=== PATIENT | male | born 2000 | race Caucasian/White ===

== ENCOUNTER 2022-02-26 12:20 | Emergency (ER) | payer SELFPAY ==
[~2022-02-26] VITALS: Ht 177.8 cm; Wt 63.5 kg
[2022-02-26] MEDS ORDERED: MORPHINE SULFATE 4 MG/1 ML DISP.SYRIN ONE (12:43)
[2022-02-26] MEDS ORDERED: ONDANSETRON 4 MG/2 ML VIAL ONE (12:43)
[2022-02-26] MEDS ORDERED: TDAP DIPH,PERTUSS,TET VAC/PF 0.5 ML DISP.SYRIN IM ONE ×2 (12:44→12:45)
[2022-02-26] MEDS ORDERED: ONDANSETRON 4 MG/2 ML VIAL IV ONE (12:45)
[2022-02-26] MEDS ORDERED: MORPHINE SULFATE 4 MG/1 ML DISP.SYRIN IV ONE (12:45)
--- NOTE | 2022-02-26 12:46 | NUR ---
DR COKER AT BEDSIDE FOR EVALUATION. PT REMAINS AWAKE, ALERT, VERBALLY RESPONSIVE.
[2022-02-26] MEDS ORDERED: LIDOCAINE HCL 2% 20 ML VIAL TP ONE (13:15)
[2022-02-26] MEDS ORDERED: LET TOPICAL SOLUTION 8 ML UDC TP ONE (13:15)
[2022-02-26] MEDS ORDERED: SODIUM BICARBONATE 4.2 % (NEUT) 5 ML VIAL TP ONE (13:15)
[2022-02-26] MEDS ORDERED: LET TOPICAL SOLUTION 8 ML UDC ONE (13:21)
[2022-02-26] MEDS ORDERED: SODIUM BICARBONATE 4.2 % (NEUT) 5 ML VIAL ONE (13:21)
[2022-02-26] MEDS ORDERED: LIDOCAINE HCL 2% 20 ML VIAL ONE (13:21)
[2022-02-26] MEDS ORDERED: NEOMY/BACITRA/POLYMYXIN B OINT UD PACKET TP ONE (14:11)
[2022-02-26] MEDS ORDERED: KETOROLAC TROMETHAMINE 30 MG INJ IVP ONE (14:15)
[2022-02-26] MEDS ORDERED: SULFAMETH/TRIMETH 800/160 MG TABLET PO ONE (14:15)
[2022-02-26] MEDS ORDERED: CEphaleXIN 500 MG CAPSULE PO ONE (14:15)
[2022-02-26] MEDS ORDERED: CEPH500C2 PO (14:19)
[2022-02-26] MEDS ORDERED: HYDR-4209 PO (14:19)
[2022-02-26] MEDS ORDERED: IBUP-1955 PO (14:19)
[2022-02-26] MEDS ORDERED: SULF1TAB48 PO (14:19)
--- NOTE | 2022-02-26 14:39 | NUR ---
Note warren in EDM - 02/26/22 at 1450 by HAYDER Patient discharged to home in stable condition. Written and verbal after care instructions given. Patient verbalizes understanding of instructions. Stressed follow up or return to ER for worsening s/s. Assissted pt via wheelchair to friend's car.
[2022-02-26 14:43] VITALS: BP 121/66
[2022-02-26] MEDS ORDERED: SULFAMETH/TRIMETH 800/160 MG TABLET ONE (14:49)
[2022-02-26] MEDS ORDERED: KETOROLAC TROMETHAMINE 30 MG INJ ONE (14:49)
[2022-02-26] MEDS ORDERED: CEphaleXIN 500 MG CAPSULE ONE (14:49)
--- NOTE | 2022-02-26 14:50 | NUR ---
IV removed. Catheter intact and site benign. Pressure and 4x4 gauze applied to site. No bleeding noted.
--- NOTE | 2022-02-26 14:53 | NUR ---
Patient discharged to home in stable condition. Written and verbal after care instructions given. Patient verbalizes understanding of instructions. Stressed follow up or return to ER for worsening s/s. PT assissted to friend's auto via wheelchair.
== END 2022-02-26 14:55 | disposition home or self-care (01) ==
LOC: ER 12:21
DX: S81.012A Laceration without foreign body, left knee, initial encounter (principal); W20.8XXA Other cause of strike by thrown, projected or falling object, initial encounter; Y92.89 Other specified places as the place of occurrence of the external cause; Y99.0 Civilian activity done for income or pay; R03.0 Elevated blood-pressure reading, without diagnosis of hypertension
CPT/HCPCS: 12004; 73564; 90715; 96374; 96375; 99284; J1885; J2270; J2405; J3490 ×2; A4663